=== PATIENT | female | born 1965 | race Caucasian/White ===

== ENCOUNTER → 2016-09-01 | Outpatient (CLI) | payer OTHER ==
[~2016-09-01] MED LIST: DAILY VALUE1 EACH PO; LIPITOR40 MG PO; NORVASC5 MG PO; OMEPRAZOLE40 M1 PO
== END | disposition home or self-care (01) ==
LOC: CDC 09:48
DX: Z01.810 Encounter for preprocedural cardiovascular examination (principal)
CPT/HCPCS: 93000

== ENCOUNTER 2016-09-07 07:41 | Day surgery (SDC) | payer OTHER ==
[~2016-09-07] VITALS: Ht 175.3 cm; Wt 106.6 kg
[2016-09-07 08:27] VITALS: BP 148/70
[2016-09-07 08:36] LABS: HEMATOCRIT 40.2 % (36.0-46.0); MCH 29.5 PG (29.0-34.0); MCHC 33.8 G/DL (30.0-36.0); MCV 87.2 FL (83-99); MEAN PLAT.VOLUME 10.5 uM^3 (9.5-12.4); PLATELET COUNT 215 K/uL (156-360); RBC DIS.WIDTH-CV 12.6 % (11.8-14.6); RBC DIS.WIDTH-SD 40.2 % (39-53); RED BLOOD COUNT 4.61 M/uL (3.80-5.20); WHITE BLOOD COUNT 4.9 K/uL (4.1-10.2)
[2016-09-07 14:06] VITALS: BP 138/75
[2016-09-07 15:06] VITALS: BP 126/62
== END 2016-09-07 15:25 | disposition home or self-care (01) ==
LOC: SDC
PROVIDERS: Orthopaedic Surgery
PROC: 0MQP4ZZ Repair Left Knee Bursa and Ligament, Percutaneous Endoscopic Approach (ICD-10-PCS; principal; 2016-09-07)
DX: S83.242A Other tear of medial meniscus, current injury, left knee, initial encounter (principal); M17.12 Unilateral primary osteoarthritis, left knee; I10 Essential (primary) hypertension; Z87.891 Personal history of nicotine dependence; K21.9 Gastro-esophageal reflux disease without esophagitis
CPT/HCPCS: 85027; J0690; J1100; J1885; J2250; J2405; J2795; J3010